=== PATIENT | female | born 1965 | race African-American/Black ===

== ENCOUNTER 2017-07-07 17:58 | Inpatient (IN) | payer OTHER ==
[~2017-07-07] VITALS: Ht 160 cm; Wt 96.6 kg
[2017-07-07 18:40] LABS: BASOPHIL (%) 0.6 % (0-1); BASOPHIL COUNT 0.1 K/uL (0-0.1); EOSINOPHIL (%) 3.5 % (0-5); EOSINOPHIL COUNT 0.4 K/uL (0-0.3); HEMATOCRIT 32.7 % (36.0-46.0); HEMOGLOBIN 10.3 G/DL (11.9-15.5); IMMATURE GRANULOCYTE (%) 1.4 % (0.0-0.7); LYMPHOCYTE (%) 17.6 % (15-42); LYMPHOCYTE COUNT 1.9 K/uL (1.0-2.8); MCH 25.4 PG (29.0-34.0); MCHC 31.5 G/DL (30.0-36.0); MCV 80.5 FL (83-99); MONOCYTE (%) 6.8 % (3-12); MONOCYTE COUNT 0.7 K/uL (0-0.8); NEUTROPHIL (%) 70.1 % (45-76); NEUTROPHIL COUNT 7.5 K/uL (1.8-6.4); PLATELET COUNT 526 K/uL (156-360); RBC DIS.WIDTH-CV 17.3 % (11.8-14.6); RBC DIS.WIDTH-SD 51.1 % (39-53); RED BLOOD COUNT 4.06 M/uL (3.80-5.20); WHITE BLOOD COUNT 10.7 K/uL (4.1-10.2)
[2017-07-07 18:49] LABS: CHLORIDE 105 mEq/L (99-109); SODIUM 143 mEq/L (136-147)
[2017-07-07 18:50] LABS: GLUCOSE 75 mg/dL (70-99)
[2017-07-07 18:55] LABS: CREATININE 1.1 mg/dL (0.6-1.3); GFR ESTIMATE (CALCULATED) 55 mL/min/; UREA NITROGEN (BUN) 30 mg/dL (9-23)
[2017-07-07] MEDS ORDERED: COLACE100 MG PO (21:31)
[2017-07-07] MEDS ORDERED: HUMULIN R100 UNITS/ SC (21:31)
[2017-07-07] MEDS ORDERED: COZAAR50 MG PO (21:32)
[2017-07-07] MEDS ORDERED: LO-DOSE ASPIRIN81 M1 PO (21:32)
[2017-07-07] MEDS ORDERED: GLUCOPHAGE1000 MG PO (21:32)
[2017-07-07] MEDS ORDERED: LANTUS 10100 UNITS/ SC (21:33)
[2017-07-07] MEDS ORDERED: ADVIL200 MG PO (21:33)
[2017-07-07] MEDS ORDERED: LIPITOR40 MG PO (21:33)
[2017-07-07] MEDS ORDERED: SSD25GM TP (21:34)
[2017-07-07] MEDS ORDERED: A AND D OINTM42.5 GM TP (21:35)
[2017-07-07 23:25] LABS: CHLORIDE 106 mEq/L (99-109); POTASSIUM 4.4 mEq/L (3.7-5.4); SODIUM 141 mEq/L (136-147)
[2017-07-07 23:27] LABS: TOTAL BILIRUBIN 0.2 mg/dL (0.0-1.0)
[2017-07-07 23:28] LABS: ALKALINE PHOSPHATASE 102 IU/L (3-129)
[2017-07-07 23:29] LABS: TOTAL BILIRUBIN 0.2 mg/dL (0.0-1.0)
[2017-07-07 23:30] LABS: ALKALINE PHOSPHATASE 102 IU/L (3-129)
[2017-07-07 23:31] LABS: ALT (GPT) 12 IU/L (3-49); AST (GOT) 12 IU/L (2-34); CREATININE 1.1 mg/dL (0.6-1.3); DIRECT BILIRUBIN 0.1 mg/dL (0.0-0.3); GFR ESTIMATE (CALCULATED) > 59 mL/min/
[2017-07-07 23:32] LABS: AST (GOT) 11 IU/L (2-34); UREA NITROGEN (BUN) 28 mg/dL (9-23)
[2017-07-07 23:34] LABS: ALT (GPT) 11 IU/L (3-49)
[2017-07-07 23:35] LABS: GLUCOSE 140 mg/dL (70-99)
[2017-07-08 00:01] LABS: HDL CHOLESTEROL 33 MG/DL (Desirable>=50); LDL CHOLESTEROL 92 mg/dL (Desirable<100); NON-HDL CHOLESTEROL 128 mg/dL (Desirable<160); TOTAL CHOLESTEROL 161 mg/dL (Desirable<200); TRIGLYCERIDES 181 MG/DL (Normal: <150)
[2017-07-08 01:53] VITALS: BP 144/68
[2017-07-08 02:59] LABS: C-REACTIVE PROTEIN 44.6 MG/L (0-10)
[2017-07-08 04:40] LABS: APPEARANCE TURBID ((CLEAR)); BILIRUBIN NEGATIVE; BLOOD SMALL; COLOR AMBER ((YELLOW)); GLUCOSE (STRIP) 50; KETONES NEGATIVE; LEUKOCYTES LARGE; NITRITE NEGATIVE; PROTEIN (STRIP) >=500; SPECIFIC GRAVITY 1.012 (1.000-1.030); UROBILINOGEN 0.2 MG/DL (0.2-1.0)
[2017-07-08 05:01] LABS: UCUL ADDED? YES; WHITE BLOOD CELLS TNTC /HPF (0-5)
[2017-07-08 05:02] LABS: URINE COMMENT FIELD OBSCURED BY
[2017-07-08 06:32] LABS: HEMATOCRIT 25.4 % (36.0-46.0); MCH 24.7 PG (29.0-34.0); MCHC 30.7 G/DL (30.0-36.0); MCV 80.4 FL (83-99); PLATELET COUNT 431 K/uL (156-360); RBC DIS.WIDTH-CV 17.3 % (11.8-14.6); RBC DIS.WIDTH-SD 51.6 % (39-53); WHITE BLOOD COUNT 8.7 K/uL (4.1-10.2)
[2017-07-08 06:33] LABS: HEMOGLOBIN 7.8 G/DL (11.9-15.5); RED BLOOD COUNT 3.16 M/uL (3.80-5.20)
[2017-07-08 07:32] VITALS: BP 125/59
[2017-07-08 08:52] LABS: FOLIC ACID (FOLATE) 12.6 NG/ML (5.0-22.0)
[2017-07-08 09:25] LABS: THYROTROPIN (TSH) 1.1 MIU/L (0.4-5.5)
[2017-07-08 11:07] VITALS: BP 157/72
[2017-07-08 15:07] VITALS: BP 132/60
[2017-07-08 19:56] VITALS: BP 169/77
[2017-07-09] VITALS: BP 166/77
[2017-07-09 01:07] LABS: TROP-I INTERPRETATION NEGATIVE; TROPONIN-I 0.01 ng/mL (0.0-0.30)
[2017-07-09 06:32] LABS: BASOPHIL (%) 0.5 % (0-1); EOSINOPHIL (%) 4.6 % (0-5); EOSINOPHIL COUNT 0.3 K/uL (0-0.3); HEMATOCRIT 27.2 % (36.0-46.0); HEMOGLOBIN 8.6 G/DL (11.9-15.5); IMMATURE GRANULOCYTE (%) 0.5 % (0.0-0.7); LYMPHOCYTE (%) 14.6 % (15-42); LYMPHOCYTE COUNT 1.1 K/uL (1.0-2.8); MCH 25.4 PG (29.0-34.0); MCHC 31.6 G/DL (30.0-36.0); MCV 80.5 FL (83-99); MONOCYTE (%) 8.2 % (3-12); MONOCYTE COUNT 0.6 K/uL (0-0.8); NEUTROPHIL (%) 71.6 % (45-76); NEUTROPHIL COUNT 5.3 K/uL (1.8-6.4); PLATELET COUNT 400 K/uL (156-360); RBC DIS.WIDTH-CV 17.2 % (11.8-14.6); RBC DIS.WIDTH-SD 50.4 % (39-53); RED BLOOD COUNT 3.38 M/uL (3.80-5.20); WHITE BLOOD COUNT 7.4 K/uL (4.1-10.2)
[2017-07-09 06:45] LABS: TROP-I INTERPRETATION NEGATIVE; TROPONIN-I < 0.01 ng/mL (0.0-0.30)
[2017-07-09 07:07] LABS: CHLORIDE 105 MEQ/L (99-109); CREATININE 0.8 MG/DL (0.6-1.3); GFR ESTIMATE (CALCULATED) > 59 mL/min/; GLUCOSE 131 mg/dL (70-99); POTASSIUM 4.2 MEQ/L (3.7-5.4); SODIUM 139 MEQ/L (136-147); UREA NITROGEN (BUN) 15 mg/dL (9-23)
[2017-07-09 07:54] VITALS: BP 138/68
[2017-07-09 12:57] LABS: TROP-I INTERPRETATION NEGATIVE; TROPONIN-I < 0.01 ng/mL (0.0-0.30)
[2017-07-09 16:00] VITALS: BP 147/94
[2017-07-09 23:37] VITALS: BP 168/80
[2017-07-10 07:15] LABS: ALBUMIN 2.4 G/DL (3.2-4.8); ALKALINE PHOSPHATASE 87 IU/L (3-129); ALT (GPT) 14 IU/L (3-49); AST (GOT) 14 IU/L (2-34); CHLORIDE 107 MEQ/L (99-109); CREATININE 0.8 MG/DL (0.6-1.3); GFR ESTIMATE (CALCULATED) > 59 mL/min/; GLUCOSE 144 mg/dL (70-99); SODIUM 140 MEQ/L (136-147); TOTAL BILIRUBIN 0.3 MG/DL (0.0-1.0); TOTAL PROTEIN 5.7 G/DL (6.4-8.3); UREA NITROGEN (BUN) 12 mg/dL (9-23)
[2017-07-10 07:19] LABS: BASOPHIL (%) 0.6 % (0-1); BASOPHIL COUNT 0.1 K/uL (0-0.1); EOSINOPHIL (%) 4.9 % (0-5); EOSINOPHIL COUNT 0.4 K/uL (0-0.3); HEMATOCRIT 27.5 % (36.0-46.0); HEMOGLOBIN 8.6 G/DL (11.9-15.5); IMMATURE GRANULOCYTE (%) 0.8 % (0.0-0.7); LYMPHOCYTE (%) 17.1 % (15-42); LYMPHOCYTE COUNT 1.4 K/uL (1.0-2.8); MCH 25.1 PG (29.0-34.0); MCHC 31.3 G/DL (30.0-36.0); MCV 80.4 FL (83-99); MONOCYTE (%) 7.6 % (3-12); MONOCYTE COUNT 0.6 K/uL (0-0.8); NEUTROPHIL COUNT 5.5 K/uL (1.8-6.4); PLATELET COUNT 398 K/uL (156-360); RBC DIS.WIDTH-CV 16.9 % (11.8-14.6); RBC DIS.WIDTH-SD 49.7 % (39-53); RED BLOOD COUNT 3.42 M/uL (3.80-5.20)
[2017-07-10 08:32] VITALS: BP 136/68
[2017-07-10 08:32] LABS: HEMOGLOBIN A1c (GLYCOHEMOGLOB) 8.8 % (Below 5.7)
[2017-07-10 16:45] VITALS: BP 146/71
[2017-07-10 23:26] VITALS: BP 138/72
[2017-07-11 06:29] LABS: HEMATOCRIT 27.6 % (36.0-46.0); HEMOGLOBIN 8.6 G/DL (11.9-15.5); MCH 25.1 PG (29.0-34.0); MCHC 31.2 G/DL (30.0-36.0); MCV 80.5 FL (83-99); PLATELET COUNT 373 K/uL (156-360); RBC DIS.WIDTH-CV 16.9 % (11.8-14.6); RBC DIS.WIDTH-SD 49.5 % (39-53); RED BLOOD COUNT 3.43 M/uL (3.80-5.20); WHITE BLOOD COUNT 8.3 K/uL (4.1-10.2)
[2017-07-11 07:09] VITALS: BP 175/86
[2017-07-11 15:08] VITALS: BP 142/75
[2017-07-11 19:58] VITALS: BP 186/98
[2017-07-12 00:31] VITALS: BP 162/76
[2017-07-12 05:30] LABS: APPEARANCE TURBID ((CLEAR)); BILIRUBIN NEGATIVE; BLOOD SMALL; COLOR YELLOW ((YELLOW)); GLUCOSE (STRIP) 50; KETONES NEGATIVE; LEUKOCYTES MODERATE; NITRITE NEGATIVE; PROTEIN (STRIP) 100; SPECIFIC GRAVITY 1.014 (1.000-1.030); UROBILINOGEN 0.2 MG/DL (0.2-1.0)
[2017-07-12 05:47] LABS: BACTERIA 2+ /HPF; EPITHELIAL CELLS RARE /HPF; MUCUS NONE SEEN /LPF; RED BLOOD CELLS 20-30 /HPF (0-5); WHITE BLOOD CELLS TNTC /HPF (0-5)
[2017-07-12 07:11] LABS: CREATININE 0.8 MG/DL (0.6-1.3); GFR ESTIMATE (CALCULATED) > 59 mL/min/
[2017-07-12 07:12] LABS: VANCOMYCIN, TROUGH 25.8 MCG/ML (10-20)
[2017-07-12 07:48] VITALS: BP 132/68
[2017-07-12 16:14] VITALS: BP 146/72
[2017-07-13 00:08] VITALS: BP 145/85
[2017-07-13 06:33] LABS: ALBUMIN 2.5 G/DL (3.2-4.8); CHLORIDE 110 MEQ/L (99-109); CREATININE 0.8 MG/DL (0.6-1.3); GFR ESTIMATE (CALCULATED) > 59 mL/min/; GLUCOSE 78 mg/dL (70-99); POTASSIUM 3.6 MEQ/L (3.7-5.4); SODIUM 143 MEQ/L (136-147); UREA NITROGEN (BUN) 13 mg/dL (9-23)
[2017-07-13 08:02] VITALS: BP 166/82
[2017-07-13] MEDS ORDERED: CLOPIDOGREL75 MG PO (11:10)
[2017-07-14 00:01] VITALS: BP 183/87
[2017-07-14 07:50] VITALS: BP 156/94
[2017-07-14 15:51] VITALS: BP 138/64
== END 2017-07-14 19:51 | disposition short-term general hospital (02) | DRG 65 ==
LOC: EME 17:58 → 5SOUTH 22:15 → EDOF 22:15 → 5SOUTH 22:15 → ENRESERV 22:16 → EDOF 07-08 01:51 → 5SOUTH 07-08 01:52
PROVIDERS: Hospitalist; Internal Medicine; Physician Assistant; Student in an Organized Health Care Education/Training Program
DX: I63.9 Cerebral infarction, unspecified (principal); G81.91 Hemiplegia, unspecified affecting right dominant side; R41.0 Disorientation, unspecified; E11.622 Type 2 diabetes mellitus with other skin ulcer; L97.319 Non-pressure chronic ulcer of right ankle with unspecified severity; E11.610 Type 2 diabetes mellitus with diabetic neuropathic arthropathy; E11.649 Type 2 diabetes mellitus with hypoglycemia without coma; E11.69 Type 2 diabetes mellitus with other specified complication; M86.671 Other chronic osteomyelitis, right ankle and foot; E11.42 Type 2 diabetes mellitus with diabetic polyneuropathy; T76.01XA Adult neglect or abandonment, suspected, initial encounter; D50.9 Iron deficiency anemia, unspecified; D63.8 Anemia in other chronic diseases classified elsewhere; I10 Essential (primary) hypertension; G56.02 Carpal tunnel syndrome, left upper limb; E04.1 Nontoxic single thyroid nodule; R32 Unspecified urinary incontinence; E78.5 Hyperlipidemia, unspecified; Z86.14 Personal history of Methicillin resistant Staphylococcus aureus infection; Z86.73 Personal history of transient ischemic attack (TIA), and cerebral infarction without residual deficits; Z89.412 Acquired absence of left great toe; Z89.422 Acquired absence of other left toe(s); Z79.2 Long term (current) use of antibiotics; Z79.4 Long term (current) use of insulin; Z79.82 Long term (current) use of aspirin; Z59.8 Other problems related to housing and economic circumstances; Z88.0 Allergy status to penicillin; Z83.3 Family history of diabetes mellitus
CPT/HCPCS: 70450; 70551; 71046; 73600; 73630; 80048; 80053; 80061; 80069; 80076; 80202; 81003; 82140; 82565; 82607; 82746; 82948; 83036; 83605; 84439; 84443; 84484; 85025; 85027; 85652; 86140; 87040; 87070; 87075; 87086; 87106; 87205; 87641; 93880; 93971; 99281; 99285; G0378; J0360; J1644; J1815; J3370; J7120